=== PATIENT | female | born 1970 | race Caucasian/White ===

== ENCOUNTER 2017-09-15 15:31 | Emergency (ER) | payer MEDICARE, MEDICAID ==
[2017-09-15] MEDS ORDERED: NORMAL SALINE 1000 ML 1,000 ML IV ONE (15:56)
--- NOTE | 2017-09-15 16:05 | ER Document Report ---
ED Medical Screen (RME) - General Chief Complaint: Nausea/Vomiting Stated Complaint: VOMITING LOW ABDOMINAL PAIN Time Seen by Provider: 09/15/17 15:56 Mode of Arrival: Ambulatory Information source: Parent - HPI Patient complains to provider of: lower abd pain Onset: Other - pt has seen multiple providers and ER visits for similar c/o -- has had CT and U/S recently. Mom states pt. still with c/o lower abd pain with occasional vomiting - Related Data Allergies/Adverse Reactions: amoxicillin Allergy (Verified 09/15/17 15:48) clindamycin [From Cleocin] Allergy (Verified 09/15/17 15:48) moxifloxacin [From Avelox] Allergy (Verified 09/15/17 15:48) Penicillins Allergy (Verified 09/15/17 15:48) Sulfa (Sulfonamide Antibiotics) Allergy (Verified 09/15/17 15:48) Covirax Allergy (Uncoded 09/15/17 15:48) Home Medications: Current Home Medications Acetaminophen [Tylenol Extra Strength 500 mg Tablet] 1 tab PO Q8 PRN 09/15/17 [ History] Cyanocobalamin (Vitamin B-12) [Vitamin B12] 3,000 mcg PO DAILY 09/15/17 [History ] Diphenhydramine HCl [Benadryl Allergy] 25 mg PO QHS 09/15/17 [History] Levonorgestrel-Ethin Estradiol [Yari] 1 each PO DAILY 09/15/17 [History] Losartan Potassium 100 mg PO DAILY 09/15/17 [History] Mefenamic Acid [Ponstel] 250 mg PO Q8 PRN 09/15/17 [History] Naproxen Sodium [Aleve] 220 mg PO BID PRN 09/15/17 [History] Past Medical History - Social History Chew tobacco use (# tins/day): No Frequency of alcohol use: None Drug Abuse: None Renal/ Medical History: Denies: Hx Peritoneal Dialysis Physical Exam - Vital signs Vitals: Temp Pulse Resp BP Pulse Ox 97.9 F 103 H 20 160/72 H 99 09/15/17 15:39 09/15/17 15:39 09/15/17 15:39 09/15/17 15:39 09/15/17 15:39 Course - Vital Signs Vital signs: Temp Pulse Resp BP Pulse Ox 97.9 F 103 H 20 160/72 H 99 09/15/17 15:39 09/15/17 15:39 09/15/17 15:39 09/15/17 15:39 09/15/17 15:39
[2017-09-15 16:47] LABS: ABSOLUTE BASOPHILS # (AUTO) 0.1 10^3/uL (0.0-0.2); ABSOLUTE EOSINOPHILS # (AUTO) 0.1 10^3/uL (0.0-0.6); ABSOLUTE LYMPHOCYTES (AUTO) 1.9 10^3/uL (0.5-4.7); ABSOLUTE MONOCYTES (AUTO) 0.8 10^3/uL (0.1-1.4); ABSOLUTE NEUT (AUTO) 5.9 10^3/uL (1.7-8.2); BASOPHILS % (AUTO) 0.7 % (0-2); HEMATOCRIT 35.7 % (36.0-47.0); HEMOGLOBIN 11.8 g/dL (12.0-15.5); MEAN CORPUSCULAR HGB CONC 33.1 g/dL (32.0-36.0); MEAN CORPUSCULAR VOLUME 85 fl (80-97); MONOCYTES % (AUTO) 8.9 % (3-13); PLATELET COUNT 435 10^3/uL (150-450); RED BLOOD COUNT 4.22 10^6/uL (3.72-5.28); RED CELL DISTRIBUTION WIDTH 17.3 % (11.5-14.0); SEGMENTED NEUTROPHILS % (AUTO) 67.4 % (42-78); TOTAL CELLS COUNTED % (AUTO) 100 %; WHITE BLOOD COUNT 8.8 10^3/uL (4.0-10.5)
[2017-09-15 16:49] LABS: APPEARANCE,URINE SLIGHTLY-CLOUDY; BILIRUBIN,URINE NEGATIVE (NEGATIVE); COLOR,URINE YELLOW; GLUCOSE, URINE NEGATIVE (NEGATIVE); KETONES,URINE NEGATIVE (NEGATIVE); LEUKOCYTE ESTERASE,URINE NEGATIVE (NEGATIVE); NITRITE,URINE NEGATIVE (NEGATIVE); PROTEIN,URINE NEGATIVE (NEGATIVE); URINE SPECIFIC GRAVITY 1.026
[2017-09-15 17:02] LABS: ALANINE AMINOTRANSFERASE 30 U/L (9-52); ALBUMIN 4.5 g/dL (3.5-5.0); ALKALINE PHOSPHATASE 78 U/L (38-126); ANION GAP 16 (5-19); ASPARTATE AMINO TRANSFERASE 19 U/L (14-36); BILIRUBIN,DIRECT 0.3 mg/dL (0.0-0.4); BILIRUBIN,TOTAL 0.4 mg/dL (0.2-1.3); BLOOD UREA NITROGEN 12 mg/dL (7-20); CALCIUM 9.2 mg/dL (8.4-10.2); CARBON DIOXIDE 21 mmol/L (22-30); CHLORIDE 107 mmol/L (98-107); GLUCOSE 107 mg/dL (75-110); LIPASE 42.9 U/L (23-300); POTASSIUM 4.3 mmol/L (3.6-5.0); SODIUM 143.7 mmol/L (137-145); TOTAL PROTEIN 7.2 g/dL (6.3-8.2)
--- NOTE | 2017-09-15 17:33 | RADIOLOGY REPORT (SQ) ---
EXAM DESCRIPTION: ACUTE ABDOMEN SERIES COMPLETED DATE/TIME: 09/15/2017 5:25 pm REASON FOR STUDY: abd pain COMPARISON: None. NUMBER OF VIEWS: Three views. TECHNIQUE: Frontal chest, supine abdomen and upright/decubitus abdomen radiographic images acquired. LIMITATIONS: None. FINDINGS: CHEST: Lungs clear of infiltrates. FREE AIR: None. No abnormal gas collections. BOWEL GAS PATTERN: Nonobstructive pattern. No dilated loops or air fluid levels. CALCIFICATIONS: No suspicious calcifications. HARDWARE: Surgical clips. SOFT TISSUES: No gross mass or suggestion of organomegaly. BONES: No acute fracture. No worrisome bone lesions. OTHER: No other significant finding. IMPRESSION: NO RADIOGRAPHIC EVIDENCE FOR ACUTE ABDOMINAL DISEASE. TECHNICAL DOCUMENTATION: JOB ID: [id number] [employer]- All Rights Reserved
--- NOTE | 2017-09-15 19:00 | RADIOLOGY REPORT (SQ) ---
EXAM DESCRIPTION: CT ABD/PELVIS WITH IV ONLY COMPLETED DATE/TIME: 09/15/2017 6:49 pm REASON FOR STUDY: lower abd pn COMPARISON: None. TECHNIQUE: CT scan of the abdomen and pelvis performed using helical scanning technique with dynamic intravenous contrast injection. No oral contrast. Images reviewed with lung, soft tissue, and bone windows. Reconstructed coronal and sagittal MPR images reviewed. Delayed images for evaluation of the urinary system also acquired. All images stored on PACS. All CT scanners at this facility use dose modulation, iterative reconstruction, and/or weight based d osing when appropriate to reduce radiation dose to as low as reasonably achievable (ALARA). [facility]: Dose Right [facility]: CareDose [facility]: Dose Right [facility]: Teradose 4D [facility]: TAKO CONTRAST TYPE AND DOSE: contrast/concentration: Isovue 370.00 mg/ml; Total Contrast Delivered: 100.0 ml; Total Saline Delivered: 72.1 ml RENAL FUNCTION: BUN 12 creatinine 0.62. RADIATION DOSE: CT Rad equipment meets quality standard of care and radiation dose reduction techniq ues were employed. CTDIvol: 15.3 - 18.9 mGy. DLP: 2061 mGy-cm.. LIMITATIONS: None. FINDINGS: LOWER CHEST: No significant findings. No nodules or infiltrates. LIVER: Normal size. No masses. No dilated ducts. SPLEEN: Normal size. No focal lesions. PANCREAS: No masses. No significant calcifications. No adjacent inflammation or peripancreatic fluid collections. Pancreatic duct not dilated. GALLBLADDER: Surgically absent. ADRENAL GLANDS: No significant masses or asymmetry. RIGHT KIDNEY AND URETER: No solid masses. No significant calcifications. No hydronephrosis or hyd roureter. LEFT KIDNEY AND URETER: No solid masses. No significant calcifications. No hydronephrosis or hydr oureter. AORTA AND VESSELS: No aneurysm. No dissection. Renal arteries, SMA, celiac without stenosis. RETROPERITONEUM: No retroperitoneal adenopathy, hemorrhage or masses. BOWEL AND PERITONEAL CAVITY: No masses or inflammatory changes. No free fluid or peritoneal masses. APPENDIX: Normal. PELVIS: No mass. No free fluid. Normal bladder. ABDOMINAL WALL: No masses. No hernias. BONES: No significant or acute findings. OTHER: No other significant finding. IMPRESSION: NO SIGNIFICANT OR ACUTE FINDING IN THE ABDOMEN OR PELVIS ON CT SCAN WITH IV CONTRAST. TECHNICAL DOCUMENTATION: JOB ID: [id number] Quality ID # [id number]: Final reports with documentation of one or more dose reduction techniques (e.g., Au tomated exposure control, adjustment of the mA and/or kV according to patient size, use of iterative reconstruction technique) 2010 [employer]- All Rights Reserved
--- NOTE | 2017-09-15 19:07 | ER Document Report ---
ED General - General Chief Complaint: Nausea/Vomiting Stated Complaint: VOMITING LOW ABDOMINAL PAIN Time Seen by Provider: 09/15/17 15:56 Mode of Arrival: Ambulatory Notes: 47-year-old lady with developmental disability presents with 3 weeks of intermittent lower abdominal pain central nonradiating. She has no nausea vomiting diarrhea. This morning she vomited once but that has resolved. She denies fever chills. She had been diagnosed with a UTI and treated. This did not change anything. She has been seeing her primary care doctor, and had a recent outpatient CT at the ED [facility] which was negative. She was evaluated by the triage physician labs and his CAT scan were ordered. Her labs and CAT scan are negative. - Related Data Allergies/Adverse Reactions: amoxicillin Allergy (Verified 09/15/17 15:48) clindamycin [From Cleocin] Allergy (Verified 09/15/17 15:48) moxifloxacin [From Avelox] Allergy (Verified 09/15/17 15:48) Penicillins Allergy (Verified 09/15/17 15:48) Sulfa (Sulfonamide Antibiotics) Allergy (Verified 09/15/17 15:48) Covirax Allergy (Uncoded 09/15/17 15:48) Home Medications: Current Home Medications Acetaminophen [Tylenol Extra Strength 500 mg Tablet] 1 tab PO Q8 PRN 09/15/17 [ History] Cyanocobalamin (Vitamin B-12) [Vitamin B12] 3,000 mcg PO DAILY 09/15/17 [History ] Diphenhydramine HCl [Benadryl Allergy] 25 mg PO QHS 09/15/17 [History] Levonorgestrel-Ethin Estradiol [Yari] 1 each PO DAILY 09/15/17 [History] Losartan Potassium 100 mg PO DAILY 09/15/17 [History] Mefenamic Acid [Ponstel] 250 mg PO Q8 PRN 09/15/17 [History] Naproxen Sodium [Aleve] 220 mg PO BID PRN 09/15/17 [History] Past Medical History - General Information source: Parent - Social History Smoking Status: Never Smoker Chew tobacco use (# tins/day): No Frequency of alcohol use: None Drug Abuse: None Family History: None Patient has suicidal ideation: No Patient has homicidal ideation: No Renal/ Medical History: Denies: Hx Peritoneal Dialysis Review of Systems - Review of Systems Notes: REVIEW OF SYSTEMS GEN: Denies fever, chills, weight loss ENT: Denies sore throat, nasal discharge, ear pain EYES: Denies blurry vision, eye pain, discharge CV: Denies chest pain, palpitations, edema RESP: Denies cough, shortness of breath, wheezing GI: D abdominal pain MSK: Denies joint pain/swelling, edema, SKIN: Denies rash, skin lesions LYMPH: Denies swollen glands/lymph nodes NEURO: Denies headache, focal weakness or numbness, dizziness PSYCH: Denies depression, suicidal or homicidal ideation PHYSICAL EXAMINATION General: No acute distress, well-nourished Head: Atraumatic, normocephalic ENT: Mouth normal, oropharynx moist, no exudates or tonsillar enlargement Eyes: Conjunctiva normal, pupils equal, lids normal Neck: No JVD, supple, no guarding CVS: Normal rate, regular rhythm, no murmurs Resp: No resp distress, equal and normal breath sounds bilaterally GI: Nondistended, soft, no tenderness to palpation, no rebound or guarding Ext: No deformities, no edema, normal range of motion in upper and lower ext Back: No CVA or midline TTP Skin: No rash, warm Lymphatic: No lymphadeopathy noted Neuro: Awake, alert. Face symmetric. GCS 15. Physical Exam - Vital signs Vitals: Temp Pulse Resp BP Pulse Ox 97.9 F 103 H 20 160/72 H 99 09/15/17 15:39 09/15/17 15:39 09/15/17 15:39 09/15/17 15:39 09/15/17 15:39 Course - Re-evaluation Re-evalutation: 09/15/17 19:05 47-year-old lady presents with ongoing abdominal pain. Negative outpatient workup. Negative ED workup at outside facility. Vitals normal. Nontender. Differential includes constipation functional abdominal pain and GERD. Her urinalysis labs and CT scan are normal today. She has had a cholecystectomy. Given her exam the acuity and her negative workup she is stable for discharge home. I have discussed with the patient there likely diagnosis, aftercare plan , follow-up plans and my usual and customary return precautions. They verbalized understanding of this. - Vital Signs Vital signs: Temp Pulse Resp BP Pulse Ox 97.9 F 103 H 20 160/72 H 99 09/15/17 15:39 09/15/17 15:39 09/15/17 15:39 09/15/17 15:39 09/15/17 15:39 - Laboratory Result Diagrams: 09/15/17 16:25 09/15/17 16:25 Laboratory results interpreted by me: 09/15/17 09/15/17 09/15/17 16:25 16:25 16:25 Hgb 11.8 L Hct 35.7 L RDW 17.3 H Carbon Dioxide 21 L Urine Blood SMALL H Urine Urobilinogen 2.0 H - Diagnostic Test Radiology reviewed: Image reviewed, Reports reviewed Discharge - Discharge Clinical Impression: Abdominal pain, unspecified site Qualifiers: Abdominal location: lower abdomen, unspecified Qualified Code(s): R10.30 - Lower abdominal pain, unspecified Condition: Good Disposition: HOME, SELF-CARE Instructions: Abdominal Pain ([facility]) Additional Instructions: This is now your second normal CAT scan. We are not sure what is causing her pain. Please follow-up with your primary care doctor for a possible referral to GI.
[2017-09-15 19:45] VITALS: BP 116/90
== END 2017-09-15 19:43 | disposition home or self-care (01) ==
LOC: ER 15:31
DX: R10.30 Lower abdominal pain, unspecified (principal); Z87.440 Personal history of urinary (tract) infections; Z88.0 Allergy status to penicillin; Z88.1 Allergy status to other antibiotic agents; Z88.2 Allergy status to sulfonamides; Z90.49 Acquired absence of other specified parts of digestive tract
CPT/HCPCS: 99284; 96360; 36415; 83690; 85025; 80053; 81001; 74022; 74177; J7030

== ENCOUNTER → 2018-01-31 | Outpatient (CLI) | payer MEDICARE, MEDICAID ==
--- NOTE | 2018-01-31 16:57 | RADIOLOGY REPORT (SQ) ---
EXAM DESCRIPTION: MRI LT LOWER JOINT WITHOUT COMPLETED DATE/TIME: 01/31/2018 1:16 pm REASON FOR STUDY: LEFT KNEE PAIN (M25.561) INTERNAL DERANGEMENT OF LEFT KNEE (M23.92) M23.92 UNSPEC IFIED INTERNAL DERANGEMENT OF LEFT KNEE M25.561 PAIN IN RIGHT KNEE COMPARISON: None. TECHNIQUE: Leftknee images acquired and stored on PACS. Multiplanar images include fat sensitive se quences as T1, water sensitive sequences as FST2 or STIR, cartilage sensitive sequences as FSPD, and gradient echo sequences. LIMITATIONS: Motion. FINDINGS: JOINT AND BURSAE: No effusion. BONE CORTEX AND MARROW: No alteration of signal to suggest marrow replacement. No worrisome bone lesi ons. No occult fracture. ACL: Intact. No degeneration or ganglion cyst. PCL: Intact. MCL: Intact. No periligamentous edema or fluid. LCL: Intact. No periligamentous edema or fluid. MEDIAL MENISCUS: Intact. LATERAL MENISCUS: Intact. MEDIAL COMPARTMENT: Cartilage thinning compared to the lateral compartment. No bone bruises or reacti ve marrow edema. No osteophytes. LATERAL COMPARTMENT: Cartilage preserved. No bone bruises or reactive marrow edema. No osteophytes. PATELLA: Shallow trochlea. Edema adjacent to the lateral retinaculum and anterior to the patella and patellar ligament. Subtle fissuring of the patellar cartilage medial to midline. No loose bodies. EXTENSOR MECHANISM: Intact. Quadriceps and patella tendons normal. SOFT TISSUES: Adjacent muscles and subcutaneous tissues normal. Normal flow void in popliteal artery and vein. OTHER: No other significant finding. IMPRESSION: 1. No evidence of meniscal or ligament tear. 2. Secondary signs of patellar tracking abnormality. TECHNICAL DOCUMENTATION: JOB ID: [id number] [employer]- All Rights Reserved Reading location - IP/workstation name: [email or web address]
== END ==
LOC: RAD 12:16
PROVIDERS: ATTEND Physician Assistant
DX: M23.92 Unspecified internal derangement of left knee (principal); M25.561 Pain in right knee

== ENCOUNTER → 2018-04-12 | Outpatient (CLI) | payer MEDICARE, MEDICAID ==
--- NOTE | 2018-04-13 15:03 | RADIOLOGY REPORT (SQ) ---
EXAM DESCRIPTION: MRI LT LOWER JOINT WITHOUT COMPLETED DATE/TIME: 04/12/2018 6:17 pm REASON FOR STUDY: LEFT KNEE PAIN M25.562 PAIN IN LEFT KNEE COMPARISON: None. TECHNIQUE: Leftknee images acquired and stored on PACS. Multiplanar images include fat sensitive se quences as T1, water sensitive sequences as FST2 or STIR, cartilage sensitive sequences as FSPD, and gradient echo sequences. LIMITATIONS: Excessive motion. FINDINGS: JOINT AND BURSAE: No effusion. BONE CORTEX AND MARROW: No alteration of signal to suggest marrow replacement. No worrisome bone lesi ons. No occult fracture. ACL: Intact. No degeneration or ganglion cyst. PCL: Intact. MCL: Intact. No periligamentous edema or fluid. LCL: Intact. No periligamentous edema or fluid. MEDIAL MENISCUS: Evaluation limited by the degree of motion artifact. Increased signal in the char belt operator ior horn without definite extension to the articular surface. Posterior root is not well visualized. LATERAL MENISCUS: Increased signal posterior horn without extension to the articular surface. MEDIAL COMPARTMENT: No focal cartilage defect. No bone bruises or reactive edema. LATERAL COMPARTMENT: No focal cartilage defect. No bone bruises or reactive edema. PATELLA: Preserved cartilage. No defect. Intact retinaculum. EXTENSOR MECHANISM: Intact. Quadriceps and patella tendons normal. SOFT TISSUES: Adjacent muscles and subcutaneous tissues normal. Normal flow void in popliteal artery and vein. OTHER: No other significant finding. IMPRESSION: Very limited study due to the degree of patient motion. Posterior root medial meniscus is not well visualized and potentially torn. TECHNICAL DOCUMENTATION: JOB ID: [id number] [employer]- All Rights Reserved Reading location - IP/workstation name: [email or web address]
== END ==
LOC: RAD 16:14
PROVIDERS: ATTEND Physician Assistant
DX: M25.562 Pain in left knee (principal)

== ENCOUNTER → 2019-03-10 | Outpatient (CLI) | payer MEDICARE, MEDICAID ==
--- NOTE | 2019-03-11 10:49 | XCELERA REPORT ---
[address] [address] Lower Extremity Arterial Evaluation Name: VENU ROB Age: 48 yrs Gender: Female : 1970 Patient Status: Outpatient Patient Location: Study Date: 03/10/2019 11:11 AM Procedure: A color flow and duplex scan of the lower extremity arteries was performed bilaterally with velocity and waveform analysis. Ankle brachial indicies performed. Reason For Study: LEG PAIN Ordering Physician: JOSH BOYKIN Performed By: Tiffanie Moser Measurements and Calculations Right Left CHAIN REPAIRER PSV 172.0 156.4 cm/sec Prox PFA PSV -100.4 -99.9 cm/sec Prox SFA PSV 141.4 146.9 cm/sec Mid SFA PSV -123.4 -103.7cm/sec Dist SFA PSV -127.3 -128.9cm/sec Prox Pop A PSV 75.4 71.7 cm/sec Dist ANDREY PSV 102.6 79.1 cm/sec Dist HERBICIDE SPRAYER PSV 34.8 28.6 cm/sec Camron Pedis PSV 52.2 -30.4 cm/sec Right Side Arterial Evaluation Normal velocity and triphasic waveforms noted from the Common Femoral artery to the infrageniculate vessels . Ankle Brachial index 1.18. Left Side Arterial Evaluation Normal velocity and triphasic waveforms noted from the Common Femoral artery to the infrageniculate vessels . Ankle Brachial index 1.36. Interpretation Summary No hemodynamically significant lesions in the bilateral lower extremities, on duplex imaging, at rest. SHEYLA's are normal indicating no significant arterial disease. Concordant with duplex. : JOSH BOYKIN > Ventura Alves
== END ==
LOC: SP 10:19
PROVIDERS: ATTEND Physician Assistant
DX: M79.662 Pain in left lower leg (principal); M79.661 Pain in right lower leg
CPT/HCPCS: 93922; 93925

== ENCOUNTER → 2019-03-19 | Outpatient (CLI) | payer MEDICARE, MEDICAID ==
--- NOTE | 2019-03-19 12:41 | RADIOLOGY REPORT (SQ) ---
EXAM DESCRIPTION: MRI LT LOWER JOINT WITHOUT COMPLETED DATE/TIME: 03/19/2019 11:26 am REASON FOR STUDY: LEFT KNEE PAIN (M25.562) M25.562 PAIN IN LEFT KNEE COMPARISON: 04/12/2018 TECHNIQUE: Leftknee images acquired and stored on PACS. Multiplanar images include fat sensitive se quences as T1, water sensitive sequences as FST2 or STIR, cartilage sensitive sequences as FSPD, and gradient echo sequences. LIMITATIONS: Motion artifact FINDINGS: JOINT AND BURSAE: No effusion. BONE CORTEX AND MARROW: minimal subcortical edema is present along the tibial at the attachment of th e posterior cruciate ligament, best shown on sagittal image 11 ACL: Intact. No degeneration or ganglion cyst. PCL: Intact. MCL: Intact. No periligamentous edema or fluid. However, there is some soft tissue swelling or edema around the periphery of the distal gracillis and semimembranosus tendons best shown on sagittal STIR images 7-22 and coronal image 19 through 22. LCL: Intact. No periligamentous edema or fluid. MEDIAL MENISCUS: No tears. No abnormal signal. LATERAL MENISCUS: No tears. No abnormal signal. MEDIAL COMPARTMENT: Cartilage preserved. No bone bruises or reactive marrow edema. No osteophytes. LATERAL COMPARTMENT: Cartilage preserved. No bone bruises or reactive marrow edema. No osteophytes. PATELLA: No chondromalacia. No subchondral cysts. Medial and lateral retinacula intact. EXTENSOR MECHANISM: Intact. Quadriceps and patella tendons normal. SOFT TISSUES: Adjacent muscles and subcutaneous tissues normal. Normal flow void in popliteal artery and vein. OTHER: No other significant finding. IMPRESSION: Tendinopathy along distal semimembranosus and gracilis tendons, medial soft tissues TECHNICAL DOCUMENTATION: JOB ID: [id number] [employer]- All Rights Reserved Reading location - IP/workstation name: [email or web address]
== END ==
LOC: RAD 10:42
PROVIDERS: ATTEND Physician Assistant
DX: M25.562 Pain in left knee (principal)

== ENCOUNTER → 2019-10-02 | Outpatient (CLI) | payer MEDICARE, MEDICAID ==
--- NOTE | 2019-10-03 10:35 | RADIOLOGY REPORT (SQ) ---
EXAM DESCRIPTION: MRI LT LOWER JOINT WITHOUT COMPLETED DATE/TIME: 10/02/2019 6:47 pm REASON FOR STUDY: M25.562 PAIN IN LEFT KNEE M25.562 PAIN IN LEFT KNEE COMPARISON: Prior left knee MRI 03/19/2019, 04/12/2018, 01/31/2018 TECHNIQUE: Leftknee images acquired and stored on PACS. Multiplanar images include fat sensitive se quences as T1, water sensitive sequences as FST2 or STIR, cartilage sensitive sequences as FSPD, and gradient echo sequences. LIMITATIONS: Motion artifact on most of the pulse sequences FINDINGS: JOINT AND BURSAE: No effusion. No fluid-filled Hernandez's cyst BONE CORTEX AND MARROW: No marrow signal abnormalities worrisome for occult fracture. subcentimeter subcortical cysts along the tibial attachment of the posterior cruciate ligament, coronal image 18 an d 19. ACL: Intact. No degeneration or ganglion cyst. PCL: Intact. MCL: Grossly intact LCL: Grossly intact MEDIAL MENISCUS: Grossly intact LATERAL MENISCUS: Grossly intact MEDIAL COMPARTMENT: Cartilage preserved. No bone bruises or reactive marrow edema. No osteophytes. LATERAL COMPARTMENT: Cartilage preserved. No bone bruises or reactive marrow edema. No osteophytes. PATELLA: No chondromalacia. No subchondral cysts. Medial and lateral retinacula intact. EXTENSOR MECHANISM: Intact. Quadriceps and patella tendons normal. SOFT TISSUES: Adjacent muscles and subcutaneous tissues normal. Normal flow void in popliteal artery and vein. Medial subcutaneous varicose veins OTHER: No other significant finding. IMPRESSION: No gross internal derangement. Motion artifact throughout the study TECHNICAL DOCUMENTATION: JOB ID: [id number] [employer]- All Rights Reserved Reading location - IP/workstation name: [email or web address]
== END ==
LOC: RAD 17:57
PROVIDERS: ATTEND Orthopaedic Surgery
DX: M25.562 Pain in left knee (principal)